=== PATIENT | female | born 2000 | race Caucasian/White ===

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

== ENCOUNTER → 2020-03-24 | Outpatient (CLI) | payer BC ==
[2020-03-24 12:04] LABS: Basophils % (A) 1 %; Eosinophils % (A) 1 %; HCT 43.1 % (34.0-46.0); HGB 13.9 gm/dL (11.4-16.0); Lymphocytes # (A) 1.5 k/uL (1.0-4.8); Lymphocytes % (A) 33 %; MCHC 32.3 g/dL (31.0-37.0); MCV 89.8 fL (80.0-100.0); Mean Platelet Volume 7.5; Monocytes # (A) 0.3 k/uL (0-1.0); Monocytes % (A) 6 %; Neutrophils # (A) 2.5 k/uL (1.3-7.7); Neutrophils % (A) 57 %; Platelet Count 227 k/uL (150-450); RDW 13.1 % (11.5-15.5); WBC 4.4 k/uL (3.8-10.6)
[2020-03-24 12:19] LABS: African American GFR (CKD) >90 (>60 ml/min/1.73 sqM); Anion Gap 5 mmol/L; Blood Urea Nitrogen 13 mg/dL (7-17); Calcium 9.9 mg/dL (8.4-10.2); Carbon Dioxide 30 mmol/L (22-30); Chloride 104 mmol/L (98-107); Glucose 92 mg/dL (74-99); Non-African American GFR(CKD) >90 (>60 ml/min/1.73 sqM); Potassium 4.6 mmol/L (3.5-5.1); Sodium 139 mmol/L (137-145)
== END | disposition home or self-care (01) ==
LOC: LABWHC1 10:49
PROVIDERS: ATTEND Obstetrics & Gynecology
DX: Z01.818 Encounter for other preprocedural examination (principal)
CPT/HCPCS: 36415; 80048; 85025

== ENCOUNTER 2020-04-03 06:08 | Inpatient (IN) | payer BC, OTHER ==
[2020-03-30 16:19] VITALS: BMI 22.1
--- NOTE | 2020-04-02 15:46 | P.HPOB ---
History of Present Illness H&P Date: 04/02/20 Chief Complaint: Complex left ovarian cyst This is a 20 y.o. female, 0, who presents for exploratory laparotomy, left ovarian cystectomy, possible left oophorectomy. She was diagnosed with a large left ovarian cyst in July of this year. She stopped having menses for about 3 months in April 2019. She then resumed menses in about July and they were occuring every 2-6 weeks. Currently menses are more regular. Her latest ultrasound showed left ovary with 2 cysts, 5.9 x 4.6 and 7.6 x 5.1 cm with an echogenic structure within measuring 1.6 cm. Her right ovary appeared normal. Uterus and lining were normal. She has some cramping on the left side during her cycle. CA-125 was 32.3 (normal). OB Hx: G0 Tower Operator Hx: No history of STDs. Using condoms for control. Social Hx: Single. Full-time collage student. Review of Systems Constitutional: Denies chills, Denies fever Eyes: denies blurred vision, denies pain Ears, nose, mouth and throat: Denies headache, Denies sore throat Cardiovascular: Denies chest pain, Denies shortness of breath Respiratory: Denies cough Gastrointestinal: Denies abdominal pain, Denies diarrhea, Denies nausea, Denies vomiting Genitourinary: Reports dysmenorrhea (mild) Menstruation: Reports menses 1-7 days, Reports menses variable Musculoskeletal: Denies myalgias Integumentary: Denies pruritus, Denies rash Neurological: Denies numbness, Denies weakness Psychiatric: Reports anxiety, Denies depression Endocrine: Denies fatigue, Denies weight change Past Medical History Additional Past Medical History / Comment(s): left ovarian cyst,"white coat syndrome-b/p runs normal at home" History of Any Multi-Drug Resistant Organisms: None Reported Additional Past Surgical History / Comment(s): wisdom teeth Past Anesthesia/Blood Transfusion Reactions: No Reported Reaction Additional Past Anesthesia/Blood Transfusion Reaction / Comment(s): no hx blood transfusion Past Psychological History: Anxiety Smoking Status: Never smoker Past Alcohol Use History: None Reported Past Drug Use History: None Reported - Past Family History Mother Additional Family Medical History / Comment(s): heart murmur Father Family Medical History: Hypertension Medications and Allergies Home Medications Medication Instructions Recorded Confirmed Type No Known Home Medications 03/30/20 03/30/20 History Allergies Allergy/AdvReac Type Severity Reaction Status Date / Time No Known Allergies Allergy Verified 03/30/20 16:14 Exam Osteopathic Statement: *. No significant issues noted on an osteopathic structural exam other than those noted in the History and Physical/Consult. Gen: pleasant well-developed, well-nourished female HEENT: within normal limits Heart: regular rate in rhythm Lungs: clear to auscultation bilaterally Abdomen: soft, non-tender Pelvic: uterus small, anteverted, non-tender. L. adnexa enlarged about 7-8 cm, non-tender. R. adnexa non-tender. Extremities: neg. Milo's. Assessment and Plan (1) Complex cyst of left ovary Current Visit: No Status: Acute Code(s): N83.292 - OTHER OVARIAN CYST, LEFT SIDE SNOMED Code(s): 80337484567625262 Plan: Proceed with laparotomy, left ovarian cystectomy, possible left oophorectomy. I have discussed the risks, benefits, and alternative therapies for the above- mentioned procedure and for both sedation/anesthesia as well as necessary blood products administration, if indicated, as they pertain to this patient. The patient has indicated her understanding and acceptance of the risks and procedures discussed.
[2020-04-03] MEDS ORDERED: ONDANSETRON 4 MG/2 ML VIAL IVP ONE ×2 (06:11→09:14)
[2020-04-03] MEDS ORDERED: LIDOCAINE 1% (10MG/ML) FOR IV START INTRADERMA PRN (06:11)
[2020-04-03] MEDS ORDERED: DEXAMETHASONE SOD PHOSPHATE 4 MG/ML 1 ML VIAL IV ONE (06:11)
[2020-04-03] MEDS ORDERED: SCOPOLAMINE 1.5MG/72HR PATCH TRANSDERM ONE (06:11)
[2020-04-03] MEDS: LACTATED RINGERS 1,000 ML IV SCH (06:40)
[2020-04-03] MEDS ORDERED: fentaNYL (PF) 50 MCG/ML 2 ML AMP ONE (07:34)
[2020-04-03] MEDS ORDERED: MIDAZOLAM 2 MG/2 ML VIAL ONE (07:34)
[2020-04-03] MEDS ORDERED: GLYCOPYRROLATE 0.2 MG/ML 2 ML VIAL ONE (07:34)
[2020-04-03] MEDS ORDERED: ROCURONIUM 10 MG/ML (10 ML VIAL) IV ONE (07:34)
[2020-04-03] MEDS ORDERED: NEOSTIGMINE 1 MG/ML 10 ML VIAL ONE (07:34)
[2020-04-03] MEDS ORDERED: KETOROLAC 15 MG/ML 1 ML VIAL ONE (07:34)
[2020-04-03] MEDS ORDERED: HYDROmorphone (PF) 1 MG/ML ONE (07:34)
[2020-04-03] MEDS ORDERED: PROPOFOL 10 MG/ML 20 ML VIAL IV ONE (07:34)
[2020-04-03] MEDS ORDERED: LIDOCAINE 1% INJ 10MG/ML (20 ML MDV) ONE (07:34)
[2020-04-03] MEDS ORDERED: LACTATED RINGERS 1,000 ML IV ONE ×2 (08:17→09:29)
[2020-04-03] MEDS ORDERED: CELLULOSE,OXIDIZED 1 EACH EACH MISCELLANE ONE (08:33)
--- NOTE | 2020-04-03 08:53 | P.OP ---
Date of Procedure: 04/03/20 Preoperative Diagnosis: Large complex left ovarian cyst Postoperative Diagnosis: Left ovarian endometrioma Procedure(s) Performed: Exploratory laparotomy, left ovarian cystectomy Anesthesia: MARGOT Surgeon: Sonya Díaz Intelligence Officer Basic #1: Patricia Jenkins Estimated Blood Loss (ml): 200 Pathology: other (Left ovarian cyst) Condition: stable Disposition: floor Indications for Procedure: This is a 20 y.o. female, 0, who presents for exploratory laparotomy, left ovarian cystectomy, possible left oophorectomy. She was diagnosed with a large left ovarian cyst in July of this year. She stopped having menses for about 3 months in April 2019. She then resumed menses in about July and they were occuring every 2-6 weeks. Currently menses are more regular. Her latest ultrasound showed left ovary with 2 cysts, 5.9 x 4.6 and 7.6 x 5.1 cm with an echogenic structure within measuring 1.6 cm. Her right ovary appeared normal. Uterus and lining were normal. She has some cramping on the left side during her cycle. CA-125 was 32.3 (normal). Operative Findings: Left ovary is enlarged and did have a large chocolate cyst consistent with a left endometrioma. Right ovary appears normal. Both tubes appear normal. No other evidence of endometriosis is visualized. Description of Procedure: The patient is taken to the operating room where she is placed in the dorsal supine position. She is prepped and draped in the normal sterile fashion including Casas catheter insertion. A Pfannenstiel skin incision was made with a scalpel. A second knife was used to carry the incision down to the underlying layer of fascia. Fascia was nicked in the midline with a scalpel and then extended laterally bilaterally with Burns scissors. The superior aspect of the fascial incision was grasped with Mary clamps and dissected off the underlying rectus muscle in the midline with Burns scissors. The inferior aspect of the fascial incision was also grasped with Mary clamps, elevated off the underl corinne rectus muscle and then dissected with sharp dissection. Peritoneum was identified and tented up with 2 hemostats. This was entered sharply with the scalpel and then extended superiorly and in fairly with Metzenbaum scissors. Next a small Hartwick retractor was placed. A 3 yard moist laparotomy sponge was used to pack the bowels. Next the pelvic contents were inspected and the above noted findings are made. The left ovary is brought up to the incision. Bovie cautery was used to gently make a linear incision along the ovary. The edges of the incision are held with clamps and then the ovary was dissected away from the cyst wall with blunt and sharp dissection. The cyst was inadvertently opened and chocolate fluid was extruded. The remainder the cyst was removed from the field after suctioning out the contents. Next the base of the ovary was then cauterized with Bovie cautery for hemostasis. Also several interrupted stitches of 0 Vicryl suture are placed for hemostasis. Next the ovary is sutured back together with 3-0 Vicryl suture in a running locked fashion. Several interrupted stitches were also placed for hemostasis. Copious irrigation was carried out with warm saline. The ovary does appear to be hemostatic. Next the ovary is wrapped in a piece of Interceed for prevention of adhesions. All instruments and sponges are removed from the abdomen. Good hemostasis is noted. Next the peritoneal layer is closed with 0 Vicryl suture in a running fashion. Muscle layer is reapproximated with 0 Vicryl suture in interrupted fashion. Next the fascial layer was closed with 0 PDS suture with 2 sutures meeting in the midline and the knots buried on either side and in the midline. Next the subcutaneous tissue was closed with 2 3-0 Vicryl suture in a running fashion. Skin was reapproximated with marii. All sponge and needle counts are correct. The patient is then taken to recovery room in stable condition.
[2020-04-03] MEDS: HYDROmorphone 0.5 MG/0.5 ML SYRINGE IVP PRN ×2 (09:11→09:25)
[2020-04-03] MEDS ORDERED: NALOXONE 0.4 MG/ML 1 ML VIAL IV PRN (09:43)
[2020-04-03] MEDS ORDERED: ZOLPIDEM 5 MG TAB PO PRN (09:43)
[2020-04-03] MEDS ORDERED: METOCLOPRAMIDE 5 MG/ML 2 ML VIAL IVP PRN (09:43)
[2020-04-03] MEDS ORDERED: HYDROmorphone PCA 10 MG/50 ML BAG IV PRN (09:43)
[2020-04-03] MEDS ORDERED: ONDANSETRON 4 MG/2 ML VIAL IVP PRN (09:43)
[2020-04-03] MEDS ORDERED: diphenhydrAMINE 50 MG/ML 1 ML VIAL IVP PRN (09:43)
[2020-04-03] MEDS ORDERED: SIMETHICONE 80 MG CHEWABLE PO PRN (09:43)
[2020-04-03] MEDS ORDERED: HYDROcodone/APAP 7.5-325MG 1 EACH TAB PO PRN (09:43)
[2020-04-03 09:49] VITALS: RESP 16
[2020-04-03] MEDS: KETOROLAC 15 MG/ML 1 ML VIAL IVP PRN ×2 (10:14→15:55)
[2020-04-03] MEDS: SENNOSIDES-DOCUSATE SODIUM 1 EACH TAB PO SCH (14:37)
[2020-04-03] MEDS: HYDROcodone/APAP 5-325MG 1 EACH TAB PO PRN (18:30)
[2020-04-03] MEDS: IBUPROFEN 600 MG TAB PO PRN (22:25)
[2020-04-04] MEDS: SENNOSIDES-DOCUSATE SODIUM 1 EACH TAB PO SCH ×2 (01:14→11:10)
[2020-04-04] MEDS: HYDROcodone/APAP 5-325MG 1 EACH TAB PO PRN ×2 (01:37→11:09)
[2020-04-04] MEDS: IBUPROFEN 600 MG TAB PO PRN (05:10)
[2020-04-04] MEDS: LACTATED RINGERS 1,000 ML IV SCH (06:50)
[2020-04-04] MEDS ORDERED: ACETAMINOPHEN TAB 325 MG TAB PO PRN (07:45)
[2020-04-04 07:57] VITALS: BP 112/66; PULSE 78; TEMP 98
[2020-04-04 08:09] LABS: Basophils % (A) 0 %; Eosinophils % (A) 0 %; HCT 33.6 % (34.0-46.0); Lymphocytes # (A) 2.4 k/uL (1.0-4.8); Lymphocytes % (A) 26 %; MCH 29.2 pg (25.0-35.0); MCHC 32.5 g/dL (31.0-37.0); MCV 89.9 fL (80.0-100.0); Mean Platelet Volume 8.2; Monocytes # (A) 0.8 k/uL (0-1.0); Monocytes % (A) 8 %; Neutrophils # (A) 5.9 k/uL (1.3-7.7); Neutrophils % (A) 63 %; Platelet Count 156 k/uL (150-450); RBC 3.74 m/uL (3.80-5.40); RDW 13.1 % (11.5-15.5); WBC 9.3 k/uL (3.8-10.6)
[2020-04-04 08:23] LABS: HGB 10.9 gm/dL (11.4-16.0)
--- NOTE | 2020-04-04 11:54 | P.DS ---
Providers Date of admission: 04/03/20 06:08 Expected date of discharge: 04/04/20 Attending physician: Sonya Díaz Primary care physician: Stated None - Discharge Diagnosis(es) (1) Complex cyst of left ovary Current Visit: No Status: Acute Hospital Course: This is a 20-year-old female 0 para 0 who underwent a exploratory laparotomy with left ovarian cystectomy due to large left endometrioma on 04/03/2020. Postoperatively she has done well. She is ambulating. She is urinating without difficulty. She is passing flatus but no bowel movement yet. Her pain has been fairly well-controlled with ibuprofen and Gibsonia. She is tolerating her diet okay. She denies nausea or vomiting. Vital signs are stable. Abdomen is soft with positive bowel sounds 4. Incision is clean dry and intact with marii in place. Extremities show negative Homans. Impression is status post exploratory laparotomy, left ovarian cystectomy postoperative day #1. Plan is to discharge home today. Routine postoperative instructions are given. She is advised to follow up in the office in approximately 2 days for a postoperative check and staple removal. She will be given a prescription for ibuprofen and Gibsonia. She was counseled on opioid use and has signed a start opioid talking form. She is advised to call the office if she has any further questions or concerns prior to her postoperative appointment. Procedures: Exploratory laparotomy, left ovarian cystectomy on 04/03/2020 Patient Condition at Discharge: Stable Plan - Discharge Summary Discharge Rx Participant: No New Discharge Prescriptions: New Ibuprofen [Motrin] 600 mg PO Q6HR PRN #60 tab PRN Reason: Mild Discomfort HYDROcodone/APAP 5-325MG [Gibsonia 5-325] 1 each PO Q6HR PRN #28 tab PRN Reason: Moderate Pain Discharge Medication List HYDROcodone/APAP 5-325MG [Gibsonia 5-325] 1 each PO Q6HR PRN #28 tab 04/04/20 [Rx] Ibuprofen [Motrin] 600 mg PO Q6HR PRN #60 tab 04/04/20 [Rx] Follow up Appointment(s)/Referral(s): Sonya Díaz DO [Doctor of Osteopathic Medicine] - 04/06/20 Activity/Diet/Wound Care/Special Instructions: Activity as tolerated. Diet as tolerated. May shower, but no tub baths for 1 week. No intercourse for 1 week. Discharge Disposition: HOME SELF-CARE
== END 2020-04-04 12:10 | disposition home or self-care (01) | DRG 743 ==
LOC: 2ORMAIN 06:08 → EDSTATUS 07:30 → 4FBP 09:10
PROVIDERS: ADMIT Obstetrics & Gynecology; ATTEND Obstetrics & Gynecology
PROC: 0UB10ZZ Excision of Left Ovary, Open Approach (ICD-10-PCS; principal; 2020-04-03 07:30)
DX: N80.1 Endometriosis of ovary (principal); F41.9 Anxiety disorder, unspecified; Z82.49 Family history of ischemic heart disease and other diseases of the circulatory system
CPT/HCPCS: 81025; 85025; 86850; 86900; 86901; 88305; 88342